=== PATIENT | female | born 1955 ===

== ENCOUNTER 2018-11-05 10:57 | Outpatient (REF) | payer BC, SELFPAY ==
[2018-11-05 21:03] LABS: COMMENT (LAB VIEW ONLY) 91.72 mg/dL; Microalb ug/mg Crea 12.5 ug/mg Cr
== END 2018-11-05 11:17 ==
LOC: NCHCN 10:57
PROVIDERS: PCP Family Medicine; Visit Provider Family Medicine
DX: E11.65 Type 2 diabetes mellitus with hyperglycemia (principal)
CPT/HCPCS: 82043; 82570

== ENCOUNTER 2019-04-05 09:46 | Outpatient (REF) | payer BC, SELFPAY ==
[2019-04-05 22:17] LABS: Anion Gap 11.5 mmol/L (3-11); BUN 15 mg/dL (7-18); CO2 27.5 mmol/L (21.0-32.0); CREATININE 0.94 mg/dL (0.55-1.02); Calcium 9.5 mg/dL (8.5-10.1); Chloride 103 mmol/L (98-107); Estimated GFR 59.95 (mL/min/1.73m2); Glucose 165 mg/dL (70-100); Potassium 4.2 mmol/L (3.5-5.1); Sodium 142 mmol/L (136-145)
[2019-04-05 22:38] LABS: Calculated LDL 189; Cholesterol 267 mg/dL (50-200); HDL Cholesterol 49 mg/dL (40-60); Triglyceride 147 mg/dL (30-150)
== END 2019-04-05 10:06 ==
LOC: NCHCN 09:46
PROVIDERS: PCP Family Medicine; Visit Provider Family Medicine
DX: E78.5 Hyperlipidemia, unspecified (principal); E11.65 Type 2 diabetes mellitus with hyperglycemia
CPT/HCPCS: 80048; 80061; 83721

== ENCOUNTER 2020-03-23 21:04 | Outpatient (REF) | payer MEDICARE, BC, SELFPAY ==
[2020-03-23 22:03] LABS: COMMENT (LAB VIEW ONLY) 156.34 mg/dL
== END 2020-03-23 21:24 ==
LOC: NCHCN 21:04
PROVIDERS: PCP Family Medicine; Visit Provider Family Medicine
DX: E11.9 Type 2 diabetes mellitus without complications (principal)
CPT/HCPCS: 82043; 82570

== ENCOUNTER 2021-08-19 09:21 | Outpatient (REF) | payer MEDICARE, BC, SELFPAY ==
[2021-08-19 14:37] LABS: COMMENT (LAB VIEW ONLY) 61.25 mg/dL; Microalb ug/mg Crea 43.8 ug/mg Cr
== END 2021-08-19 09:22 | disposition home or self-care (01) ==
LOC: NCHCN 09:21
PROVIDERS: PCP Family Medicine; Visit Provider Family Medicine
DX: E11.65 Type 2 diabetes mellitus with hyperglycemia (principal)
CPT/HCPCS: 82043; 82570

== ENCOUNTER 2021-10-15 12:41 | Outpatient (REF) | payer MEDICARE, BC, SELFPAY ==
[2021-10-15 14:58] LABS: ALT 23 U/L (14-59); AST 18 U/L (15-37); Alkaline Phosphatase 66 U/L (46-116); Anion Gap 8.2 mmol/L (3-11); BUN 17 mg/dL (7-18); Bilirubin, Total 0.5 mg/dL (0.2-1.0); CO2 28.8 mmol/L (21.0-32.0); CREATININE 0.8 mg/dL (0.55-1.02); Calcium 9.1 mg/dL (8.5-10.1); Calculated LDL 94 mg/dL (<100); Chloride 103 mmol/L (98-107); Cholesterol 176 mg/dL (<200); Glucose 144 mg/dL (74-106); HDL Cholesterol 64 mg/dL (40-60); Potassium 4.1 mmol/L (3.5-5.1); Sodium 140 mmol/L (136-145); Total Protein 7.5 g/dL (6.4-8.2); Triglyceride 90 mg/dL (<150)
[2021-10-15 15:27] LABS: COMMENT (LAB VIEW ONLY) 45.68 mg/dL; Microalb ug/mg Crea 20.8 ug/mg Cr
== END 2021-10-15 12:42 | disposition home or self-care (01) ==
LOC: NCHCN 12:41
PROVIDERS: PCP Family Medicine; Visit Provider Family Medicine
DX: E11.65 Type 2 diabetes mellitus with hyperglycemia (principal); E78.5 Hyperlipidemia, unspecified; R80.9 Proteinuria, unspecified
CPT/HCPCS: 80053; 80061; 82043; 82570

== ENCOUNTER 2025-07-10 15:02 | Outpatient (REF) | payer MEDICARE, BC, SELFPAY ==
[2025-07-10 15:26] LABS: Anion Gap 7.5 mmol/L (3-11); BUN 10 mg/dL (7-18); CO2 29.5 mmol/L (21.0-32.0); Calcium 9.8 mg/dL (8.5-10.1); Chloride 103 mmol/L (98-107); Estimated GFR 68.77 (mL/min/1.73m2); Glucose 94 mg/dL (74-106); Potassium 5.1 mmol/L (3.5-5.1); Sodium 140 mmol/L (136-145)
[2025-07-11 15:30] LABS: COMMENT (LAB VIEW ONLY) 176.69 mg/dL; Microalb ug/mg Crea 8.9 ug/mg Cr
[2025-07-11 15:31] LABS: Calculated LDL 96 mg/dL (<100); Cholesterol 181 mg/dL (<200); HDL Cholesterol 72 mg/dL (>or=50); Triglyceride 67 mg/dL (<150)
== END 2025-07-10 15:03 | disposition home or self-care (01) ==
LOC: NCHCN 15:02
PROVIDERS: PCP Family Medicine; Visit Provider Family Medicine
DX: E11.9 Type 2 diabetes mellitus without complications (principal); E78.2 Mixed hyperlipidemia
CPT/HCPCS: 80048; 80061; 82043; 82570